=== PATIENT | male | born 1935 | race Caucasian/White ===

== ENCOUNTER 2020-01-17 22:03 | Emergency (ER) | payer OTHER ==
--- NOTE | 2020-01-17 23:57 | EDM.PDOC ---
ED HPI GENERAL MEDICAL PROBLEM - General Chief Complaint: Lower Extremity Injury/Pain Stated Complaint: LEFT FOOT PAIN Time Seen by Provider: 01/17/20 23:52 Source of Information: Reports: Patient, Family () History Limitations: Reports: No Limitations - History of Present Illness INITIAL COMMENTS - FREE TEXT/NARRATIVE: Mr. Garcia is a very pleasant 84-year-old gentleman who now presents to the ED complaining of redness and swelling to his distal left foot for the past 3 days. He has not had a fever or chills. The patient states that he and his have been hiking while on a road trip from [place] since 01/10/2020. He states that they intend to return home this coming 01/20/2020. Other than washing the foot, the patient has not taken any [id number] or applied any home remedies to the foot. Here in the ED, the patient is found to be hemodynamically stable, afebrile, saturating 96% on room air. Other than the foot issue, the patient denies recent fever, chills, sore throat, ear pain, nasal or sinus congestion, cough, dyspnea, chest pain, palpitations, nausea, vomiting, constipation, diarrhea, abdominal pain, urinary symptoms, recent weight gain or weight loss, recent bloody bowel movements or black bowel movements, recent joint aches, headaches, or rashes. The patient's PCP is in [place]. Left Foot Pain Score (Numeric/FACES): 6 - Related Data Allergies Allergy/AdvReac Type Severity Reaction Status Date / Time No Known Allergies Allergy Verified 01/17/20 22:32 Home Meds: Home Meds Albuterol Sulfate [Proair Hfa] 2 puff INH Q4H PRN 01/17/20 [History] Past Medical History Respiratory History: Reports: Asthma Gastrointestinal History: Reports: Bowel Obstruction Oncologic (Cancer) History: Reports: Prostate (s/p radical prostatectomy) - Past Surgical History HEENT Surgical History: Reports: Oral Surgery (dental extractions) GI Surgical History: Reports: Appendectomy, Colon (Hemicolectomy with colostomy x 4 months), Lysis of Adhesions Musculoskeletal Surgical History: Reports: Other (See Below) (Left Achilles tendon repair) Oncologic Surgical History: Reports: Other (See Below) (Radical prostatectomy 1996) Social & Family History - Family History Family Medical History: Noncontributory - Tobacco Use Smoking Status *Q: Never Smoker Second Hand Smoke Exposure: No - Caffeine Use Caffeine Use: Reports: Coffee - Alcohol Use Alcohol Use History: No - Recreational Drug Use Recreational Drug Use: No - Living Situation & Occupation Living situation: Reports: , with Spouse Occupation: Retired Review of Systems - Review of Systems Review Of Systems: Comprehensive ROS is negative, except as noted in HPI. ED EXAM, GENERAL - Physical Exam Exam: See Below Exam Limited By: No Limitations General Appearance: Alert, WD/WN, No Apparent Distress Extremities: Other (There is erythema on the dorsal aspect of the patient's left foot extending from the webbing between the first and second toe all the way to the lateral aspect of the patient's fifth toe, over the MCP joints, with some erythema extending onto the distal foot, as well as much of the third toe and half-way down the second and fourth toes. On the volar aspect of the foot, there is a blister extending between the second and fourth toes, over the days of the toes, with mild surrounding erythema to the distal sole. Neurovascular status of the left lower extremity is intact.) Course - Vital Signs Last Recorded V/S: Last Vital Signs Temp 36.8 C 01/18/20 00:47 Pulse 73 01/18/20 00:47 Resp 16 01/18/20 00:47 BP 125/70 01/18/20 00:47 Pulse Ox 96 01/18/20 00:47 - Re-Assessments/Exams Free Text/Narrative Re-Assessment/Exam: 01/17/20 23:57 4-view radiographs of the left foot appear to be grossly unremarkable, with no fractures or dislocations identified. There are some streak-like opacities noted over the Achilles tendon; it is unclear if these are on the surface or within the patient's distal leg. Formal read per the Radiologist pending. 01/18/20 00:09 As above, the patient developed some ulceration to the volar aspect of his left 2nd, 3rd, and 4th toes a few days ago, and on examination today, he clearly has cellulitis to his distal foot and somewhat onto his toes. I will start him on Keflex with a prescription via [facility]. He is to keep the foot clean with ordinary soap and water, and I advised that he stop hiking on it. He stated that he and his will be heading back to [place] on Monday, and I advised that he follow-up with his PCP as soon as possible once he returns home. Departure - Departure Time of Disposition: 00:10 Disposition: Home, Self-Care 01 Condition: Good Clinical Impression: Cellulitis of left foot - Discharge Information *PRESCRIPTION DRUG MONITORING PROGRAM REVIEWED*: Not Applicable *COPY OF PRESCRIPTION DRUG MONITORING REPORT IN PATIENT CECY: Not Applicable Instructions: Cellulitis, Adult, [id number] Referrals: PCP,Not In Area [Primary Care Provider] - Forms: ED Department Discharge Additional Instructions: You were seen in the emergency room for pain, redness, and swelling to your distal left foot over the past few days. Work-up in the ER included x-rays of your left foot, which found no abnormalities such as broken bones or dislocations. Based on your history and physical exam, you have cellulitis (an infection of the skin) of your distal left foot. You have been prescribed the antibiotic Keflex via [facility]. Take 1 tablet of Keflex every 6 hours, as prescribed. Finish the entire prescription unless your doctor tells you otherwise. Keep your foot clean with ordinary soap and water. We recommend against the use of an antibiotic ointment. We strongly recommend that you stop hiking, as further abrasion will only worsen your condition. Follow-up with your PCP as soon as possible once he return home to [place]. If any other problems, please do not hesitate to return to the ER. Sepsis Event Note (ED) - Evaluation Sepsis Screening Result: No Definite Risk
--- NOTE | 2020-01-19 09:06 | CR ---
Left foot: 4 views of the left foot were obtained. Comparison: No previous study. Small metallic foreign objects are projected within the achilles tendon. Calcifications are also noted within the achilles tendon. Thickening of the achilles tendon is seen. Joint space narrowing noted within the 1st MTP joint. Bony structures are osteopenic. No acute fracture, dislocation or other bony abnormality is seen. Mild vascular calcification is noted within the ankle. Impression: 1. Findings with the achilles tendon as noted above. 2. Other findings believed to be incidental. Nothing acute is appreciated. Diagnostic code #2 This report was dictated in MDT
== END 2020-01-18 00:49 | disposition home or self-care (01) ==
LOC: JD.ED 22:03
DX: L03.116 Cellulitis of left lower limb (principal); J45.909 Unspecified asthma, uncomplicated
CPT/HCPCS: 73630-26-LT; 73630-LT; 99283-25